=== PATIENT | male | born 2000 | race Two or more races ===

== ENCOUNTER 2022-10-13 19:23 | Emergency (ER) | payer MEDICAID ==
[~2022-10-13] VITALS: Ht 170.2 cm; Wt 95.7 kg
[2022-10-13 20:34] LABS: Urine WBC None Seen /hpf (0 - 5)
[2022-10-13 20:48] LABS: Urine Bacteria NONE SEEN /hpf (None Seen); Urine Blood Negative /uL (Negative); Urine Specific Gravity 1.015 (1.001-1.035)
[2022-10-13 22:44] VITALS: BP 131/68
== END 2022-10-13 22:51 | disposition home or self-care (01) ==
LOC: EDSEX 19:23 → ER 19:23
DX: G44.82 Headache associated with sexual activity (principal)
CPT/HCPCS: 70450; 81001